=== PATIENT | female | born 1975 | race Caucasian/White ===

== ENCOUNTER 2018-05-09 07:52 | Outpatient (CLI) | payer BC ==
--- NOTE | 2018-05-11 09:00 | EEG ---
Referring Physician: Rhina FAUSTIN EEG # [id number] TEST TYPE: ROUTINE OUTPATIENT REPORT: AN EEG USING THE [employer] TEN-TWENTY SYSTEM OF ELECTRODE PLACEMENT WAS PERFORMED. The waking background is a medium amplitude 9 hertz alpha frequency. No sleep was seen. Hyperventilation and photic stimulation were unremarkable. No epileptiform features were seen. IMPRESSION: THIS IS A NORMAL AWAKE EEG. Lead Ramp Agent:BABAK Lepidopterist: EEG.NAMRATA WEBER
== END 2018-05-09 07:53 | disposition home or self-care (01) ==
LOC: EEG 07:52
PROVIDERS: ATTEND Family Medicine
DX: R56.9 Unspecified convulsions (principal)
CPT/HCPCS: 95816